=== PATIENT | female | born 1985 | race American Indian/Alaskan Native ===

== ENCOUNTER 2022-08-07 09:01 | Emergency (ER) | payer SELFPAY ==
[2022-08-07] MEDS ORDERED: CYCLOBENZAPRINE 10 MG TAB PO ONE (11:46)
[2022-08-07] MEDS ORDERED: dexAMETHasone 4 MG/ML VIAL PO ONE (11:46)
[2022-08-07] MEDS ORDERED: KETOROLAC 10 MG TAB PO ONE (11:46)
[2022-08-07] MEDS ORDERED: ACETAMINOPHEN W/CODEINE 300-30 MG TAB PO ONE (11:46)
--- NOTE | 2022-08-07 12:03 | Emergency Department Report ---
ED Neck Pain/Injury HPI - General Chief Complaint: Neck Pain/Injury Stated Complaint: ARM PAIN Time Seen by Provider: 08/07/22 11:37 Mode of arrival: Ambulatory Limitations: No Limitations - History of Present Illness Initial Comments: 37 yo black female with no pmh presents to ed for evaluation of few day history of left neck pain that radiates down her left arm. 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 She denies bates, fever. MD Complaint: neck pain -: Gradual, days(s) Place: home Radiation: left upper extremity Severity: severe Severity scale (0 -10): 10 Quality: aching, tingling Worsens With: movement of extremity, movement of neck Associated Symptoms: tingling. denies: headache, fever, weakness, vertigo, nausea, vomiting Treatments Prior to Arrival: none - Related Data Previous Rx's Medication Instructions Recorded Last Taken Type Cyclobenzaprine [Flexeril] 10 mg PO TID PRN #30 tab 08/07/22 Unknown Rx Lidocaine [Lidoderm] 1 each TP DAILY PRN #10 patch 08/07/22 Unknown Rx Naproxen 500 mg PO BID #14 tab 08/07/22 Unknown Rx methylPREDNISolone [Medrol 4MG 4 mg PO DAILY #1 pack 08/07/22 Unknown Rx DOSEPAK (21 tabs)] Allergies Allergy/AdvReac Type Severity Reaction Status Date / Time No Known Allergies Allergy Unverified 08/07/22 09:29 ED Review of Systems ROS: Stated complaint: ARM PAIN Other details as noted in HPI Comment: All other systems reviewed and negative Constitutional: denies: chills, fever Eyes: denies: vision change Respiratory: denies: shortness of breath Cardiovascular: denies: chest pain, palpitations Gastrointestinal: denies: abdominal pain, nausea, vomiting Genitourinary: denies: urgency, dysuria Musculoskeletal: denies: back pain Neurological: denies: headache, weakness ED Past Medical Hx - Past Medical History Previous Medical History?: No - Surgical History Past Surgical History?: No - Medications Home Medications: Home Medications Medication Instructions Recorded Confirmed Last Taken Type Cyclobenzaprine [Flexeril] 10 mg PO TID PRN #30 tab 08/07/22 Unknown Rx Lidocaine [Lidoderm] 1 each TP DAILY PRN #10 patch 08/07/22 Unknown Rx Naproxen 500 mg PO BID #14 tab 08/07/22 Unknown Rx methylPREDNISolone [Medrol 4MG 4 mg PO DAILY #1 pack 08/07/22 Unknown Rx DOSEPAK (21 tabs)] ED Physical Exam - General Limitations: No Limitations General appearance: alert, in no apparent distress - Head Head exam: Present: atraumatic, normocephalic - Eye Eye exam: Present: normal appearance. Absent: conjunctival injection - ENT ENT exam: Present: normal exam - Neck Neck exam: Present: normal inspection, tenderness (left side only with tingling down left arm, denies midline vertebral tenderness. ) - Respiratory Respiratory exam: Present: normal lung sounds bilaterally. Absent: respiratory distress, chest wall tenderness - Cardiovascular Cardiovascular Exam: Present: regular rate, normal heart sounds - GI/Abdominal GI/Abdominal exam: Present: soft, normal bowel sounds. Absent: distended, tenderness, guarding, rebound, rigid - Expanded Upper Extremity Exam Left Shoulder Exam: Present: normal inspection, full ROM, tenderness. Absent: swelling, abrasion Upper Arm exam: Present: normal inspection Elbow exam: Present: normal inspection Forearm Wrist exam: Present: normal inspection Hand Wrist exam: Present: normal inspection Vascular: Present: normal capillary refill, radial pulse. Absent: vascular compromise, Pallo - Back Exam Back exam: Present: normal inspection - Neurological Exam Neurological exam: Present: alert, oriented X3, CN II-XII intact, normal gait, reflexes normal. Absent: motor sensory deficit - Expanded Neurological Exam Expanded Patient oriented to: Present: person, place, time Speech: Present: fluid speech Cranial nerves: EOM's Intact: Normal, Gag Reflex: Normal, Tongue Deviation: Normal Cerebellar function: Romberg: Normal Motor strength exam: RUE: 5, LUE: 5, RLE: 5, LLE: 5 Best Eye Response ([place]): (4) open spontaneously Best Motor Response ([place]ra[place]): (6) obeys commands Best Verbal Response ([place]ra[place]): (5) oriented Kraig Total: 15 - Psychiatric Psychiatric exam: Present: normal affect, normal mood - Skin Skin exam: Present: warm, dry, intact, normal color ED Course Vital Signs 08/07/22 08/07/22 09:25 12:54 Temperature 98.7 F 98.2 F Pulse Rate 68 68 Respiratory 12 14 Rate Blood Pressure 116/52 137/80 [Right] O2 Sat by Pulse 100 99 Oximetry ED Medical Decision Making - Medical Decision Making 37 yo black female with no pmh presents to ed for evaluation of few day history of left neck pain that radiates down her left arm. 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 She denies bates, fever. Physical exam and symptoms most consistent with cervical radicular pain. Patient will be discharged home with a medrol dosepak, naproxen, flexeril, and lidoderm patches. She is advised to follow up with orthopedics if no improvement or worsening symptoms and return to ed as needed. She verbalizes understanding of and agreement with plan of care. Critical care attestation.: If time is entered above; I have spent that time in minutes in the direct care of this critically ill patient, excluding procedure time. ED Disposition Clinical Impression: Cervical radicular pain Disposition: 01 HOME / SELF CARE / HOMELESS Is pt being admited?: No Does the pt Need Aspirin: No Condition: Stable Instructions: Cervical Radiculopathy, [id number] Additional Instructions: Take medications as prescribed. Follow-up with your primary care provider if no improvement or worsening symptoms. Return to the emergency department as needed. Prescriptions: Cyclobenzaprine [Flexeril] 10 mg PO TID PRN #30 tab PRN Reason: Muscle Spasm Lidocaine [Lidoderm] 1 each TP DAILY PRN #10 patch PRN Reason: Pain, Moderate (4-6) methylPREDNISolone [Medrol 4MG DOSEPAK (21 tabs)] 4 mg PO DAILY #1 pack Naproxen 500 mg PO BID #14 tab Referrals: CHANTE HUERTA MD [Staff Physician] - 3-5 Days Forms: Work/School Release Form(ED) Time of Disposition: 12:03
[2022-08-07 12:55] VITALS: BP 137/80
== END 2022-08-07 12:54 | disposition home or self-care (01) ==
LOC: ED 09:01
DX: M54.12 Radiculopathy, cervical region (principal); Z79.899 Other long term (current) drug therapy
CPT/HCPCS: 99282; J1100